=== PATIENT | female | born 1990 | race Caucasian/White ===

== ENCOUNTER 2023-01-29 17:52 | Emergency (ER) | payer OTHER, SELFPAY ==
[2023-01-29 18:28] VITALS: BP 117/70; PULSE 98; RESP 16; TEMP 37.2; O2SAT 99
[2023-01-29 18:33] VITALS: BP 117/70; PULSE 98; RESP 16; TEMP 37.2; O2SAT 99
--- NOTE | 2023-01-29 18:57 | ED.SKABFB ---
HPI - Skin/Abscess/Foreign Bdy General Chief complaint: Skin/Abscess/Foreign Body Stated complaint: rash on body Source: patient Mode of arrival: ambulatory Limitations: no limitations History of Present Illness HPI narrative: 33-year-old female presenting for complaint of rash to bilateral forearms and left neck worsening over the past 10 days. 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 States the rash is extremely itchy and she has caused the area to the left neck to become excoriated and draining. She is concerned for infection. She has taken nothing for symptoms. Denies lip, tongue, or throat swelling, shortness of breath or wheezing. Denies changes to soap, detergent, lotion, or any other exposures. No one else in the house or any contacts with similar symptoms. Related Data Home Medications Medication Instructions Recorded Confirmed Mirena 01/29/23 aripiprazole 15 mg tablet mg 01/29/23 buspirone 7.5 mg tablet mg 01/29/23 quetiapine 50 mg tablet mg 01/29/23 Allergies Allergy/AdvReac Type Severity Reaction Status Date / Time No Known Allergies Allergy Unverified 01/29/23 18:01 Review of Systems Review of Systems: CONSTITUTIONAL: Denies body aches, fever, chills, or sweats. EYES: Denies visual changes, redness, or discharge. ENT: Denies rhinorrhea, congestion CARDIOVASCULAR: Denies chest pain, palpitations, or edema. RESPIRATORY: Denies cough or dyspnea. GASTROINTESTINAL: Denies abdominal pain, nausea, vomiting, or diarrhea. SKIN: reports rash MUSCULOSKELETAL: Denies back pain, joint pain, or myalgia. NEUROLOGIC: Denies headache, numbness, tingling, or weakness. [facility] Past Medical History Medical History (Updated 01/29/23 @ 19:06 by Angelita Maya APRN) No pertinent past medical history Comments At time of signature, I have reviewed and agree with nursing past medical, surgical, social and family history unless otherwise noted. Please see nursing chart for further information. There is no relevant family history pertinent to the presenting complaint Exam Narrative: GENERAL: Well-appearing HEAD: Normocephalic, atraumatic. EYES: conjunctivae clear, and EOMI. ENT: Mucous membranes moist. Oropharynx without edema, erythema or lesions. NECK: Supple. No lymphadenopathy CHEST: Clear to auscultation. HEART: Regular rate and rhythm. SKIN: Warm, dry. left neck excoriated with surrounding erythema; bilateral forearms with linear erythematous vesicles c/w contact dermatitis. Left abdomen with one erythematous papule and surrounding erythema approx 2cm diameter, no active drainage, nontender. NEURO: Alert and oriented x3. Course Course Emergency Course: Patient is aware of diagnosis, understands and agrees to treatment plan. Anticipatory guidance given. Patient agrees to follow-up as directed and is aware of reasons to seek care at the emergency department. Portions of this record may have been created with voice recognition software Level of Care: Express Care Visit Vital Signs Vital signs: Vital Signs Temperature 98.9 F 01/29/23 18:28 Pulse Rate 98 01/29/23 18:28 Respiratory Rate 16 01/29/23 18:28 Blood Pressure 117/70 01/29/23 18:28 Pulse Oximetry 99 01/29/23 18:28 Oxygen Delivery Room Air 01/29/23 18:28 Temperature 98.9 F 01/29/23 18:33 Pulse Rate 98 01/29/23 18:33 Respiratory Rate 16 01/29/23 18:33 Blood Pressure 117/70 01/29/23 18:33 Pulse Oximetry 99 01/29/23 18:33 Oxygen Delivery Room Air 01/29/23 18:33 Reviewed MDM - Skin/Abscess/Foreign Bdy MDM Narrative Medical decision making narrative: Discussed physical exam findings and RXs. Advised supportive measures and signs/symptoms to go to the ER. Pt is appropriate for outpt treatment and f/u. Instructed patient to go to nearest ER immediately for any worsening symptoms including but not limited to: fever, spreading rash, pain
== END 2023-01-29 19:04 | disposition home or self-care (01) ==
PROVIDERS: Emergency Provider Nurse Practitioner Family
DX: L25.9 Unspecified contact dermatitis, unspecified cause (principal)
CPT/HCPCS: 99213; G0463

== ENCOUNTER 2023-05-01 13:35 | Emergency (ER) | payer OTHER, SELFPAY ==
[2023-05-01 13:45] VITALS: BP 113/73; PULSE 105; RESP 16; TEMP 36.5; O2SAT 100
--- NOTE | 2023-05-01 13:47 | ED.SKABFB ---
HPI - Skin/Abscess/Foreign Bdy General Chief complaint: Wound/Laceration Stated complaint: Wound Under Right Armpit Time Seen by Provider: 05/01/23 13:36 Source: patient Mode of arrival: ambulatory Limitations: no limitations History of Present Illness HPI narrative: Patient is a 33-year-old female who presents with abscess under right arm just distal of axilla. Patient states it has been present for 2 weeks and has just grown in size. Patient reports it is tender has been able tolerate pain until today. Patient has been taking Tylenol and ibuprofen. Denies any drainage from wound. Related Data Home Medications Medication Instructions Recorded Confirmed Mirena 01/29/23 aripiprazole 15 mg tablet mg 01/29/23 quetiapine 50 mg tablet mg 01/29/23 Allergies Allergy/AdvReac Type Severity Reaction Status Date / Time No Known Allergies Allergy Verified 05/01/23 13:48 Review of Systems Review of Systems: All systems reviewed & are unremarkable except as noted in HPI and below Constitutional: Constitutional: Denies body ache(s), Denies chills, Denies fatigue, Denies fever(s), Denies headache(s), Denies malaise and Denies weakness Eyes: Eyes: Denies blurry vision, Denies irritation and Denies loss of vision ENT: Denies otalgia, Denies headache(s), Denies nasal discharge, Denies sinus pain and Denies sore throat Cardiovascular: Cardiovascular: Denies chest pain, Denies irregular heart rhythm and Denies dyspnea Respiratory: Respiratory: Denies dyspnea Gastrointestinal: Gastrointestinal: Denies abdominal pain, Denies melena, Denies hematochezia, Denies diarrhea, Denies nausea and Denies vomiting Musculoskeletal: Musculoskeletal: Denies back pain, Denies myalgias and Denies arthralgias Integumentary/Breasts: Skin/Breast: Reports furuncle, Denies pruritus, Reports erythema and Denies rash Neurologic: Denies headache(s), Denies loss of vision and Denies weakness Psychiatric: Psychiatric: Reports no additional psychiatric complaints Endocrine: Endocrine: Denies fatigue PMFSH Past Medical History Medical History No pertinent past medical history Comments At time of signature, agree with nursing past medical, surgical, social and family history. There is no relevant family history pertinent to the presenting complaint. Exam Const: General: cooperative, healthy appearing, comfortable, no acute distress and well nourished Nutritional Appearance: well nourished Orientation/consciousness: patient oriented x3 Limitations: no limitations HENMT: Head: normal to inspection, normocephalic and atraumatic Ears: hearing grossly normal bilaterally and external ears normal Face/Nose/Sinus: Normal external nose present, normal facial exam and face symmetric Face and sinus: normal facial exam and face symmetric Mouth: Yes lip normal Eyes: General: appearance normal, both eyes and all related structures Alignment and Position: alignment normal and position normal Periorbital: periorbital findings normal Eyelids: eyelids normal Pupils: Equal, round and reactive pupils present EOM: EOMs intact bilaterally Neck: Neck: normal visual inspection, full ROM and supple Chest: Chest palpation & inspection: normal inspection of the chest Chest/axillae images: 1. 3x3 cm abscess with fluctuance and underlying induration. Skin on abscess and surrounding abscess 4x4 cm erythemic with no streaking Resp: Effort & Inspection: normal respiratory effort and able to speak in complete sentences Auscultation: clear to auscultation bilaterally Cardio: Rate: regular rate Rhythm: regular rhythm Heart sounds: S1 normal heart sound present and S2 normal heart sound present GI: Inspection: normal to inspection Skin: General skin exam: normal color and no rashes or lesions noted Neuro: General: patient oriented x3 and moves all extremities Cranial nerves: Yes Equal, round and re
== END 2023-05-01 14:10 | disposition home or self-care (01) ==
PROVIDERS: Emergency Provider Nurse Practitioner Family
DX: L02.411 Cutaneous abscess of right axilla (principal)
CPT/HCPCS: 10060; 87070; 87075; 87205; 99213; G0463

== ENCOUNTER 2023-06-25 16:23 | Emergency (ER) | payer OTHER, SELFPAY ==
--- NOTE | 2023-06-25 16:25 | ED.URI ---
HPI - URI/Sore Throat General Chief Complaint: Upper Respiratory Infection Stated Complaint: Sinus Time Seen by Provider: 06/25/23 16:25 Source: patient Mode of arrival: ambulatory Limitations: no limitations History of Present Illness HPI Narrative: Patient is a 33-year-old female who presents with coughing congestion for 2 days. Patient states prior to that starting she had sore throat for 1 day. Patient also reports headaches. Denies any fever, chills, nausea, vomiting, diarrhea. Has been taking Sudafed with mild relief. Reports exposure to flu. Related Data Home Medications Medication Instructions Recorded Confirmed Mirena 1 device intrauterine ONCE 01/29/23 06/25/23 buspirone 15 mg tablet 15 mg PO DAILY 06/25/23 06/25/23 buspirone 7.5 mg tablet 7.5 mg PO DAILY 06/25/23 06/25/23 fluoxetine 10 mg capsule 10 mg PO DAILY 06/25/23 06/25/23 fluoxetine 20 mg capsule 20 mg PO DAILY 06/25/23 06/25/23 Allergies Allergy/AdvReac Type Severity Reaction Status Date / Time No Known Allergies Allergy Verified 06/25/23 16:30 Review of Systems Review of Systems: All systems reviewed & are unremarkable except as noted in HPI and below Constitutional: Constitutional: Denies body ache(s), Denies chills, Denies fatigue, Denies fever(s), Reports headache(s), Denies malaise and Denies weakness Eyes: Eyes: Denies blurry vision, Denies itchy eyes and Denies loss of vision ENT: Denies otalgia, Denies headache(s), Reports nasal congestion, Denies sinus pain and Reports sore throat Cardiovascular: Cardiovascular: Denies chest pain, Denies irregular heart rhythm and Denies dyspnea Respiratory: Respiratory: Reports cough and Denies dyspnea Gastrointestinal: Gastrointestinal: Denies abdominal pain, Denies diarrhea, Denies nausea and Denies vomiting Musculoskeletal: Musculoskeletal: Denies back pain, Denies myalgias and Denies arthralgias Integumentary/Breasts: Skin/Breast: Denies pruritus and Denies rash Neurologic: Reports headache(s), Denies loss of vision and Denies weakness Psychiatric: Psychiatric: Reports no additional psychiatric complaints Endocrine: Endocrine: Denies fatigue Allergic/Immunologic: Allergic/Immunologic: Denies itchy eyes PMFSH Past Medical History Medical History No pertinent past medical history Comments At time of signature, agree with nursing past medical, surgical, social and family history. There is no relevant family history pertinent to the presenting complaint. Exam Const: General: cooperative, healthy appearing, comfortable, no acute distress and well nourished Nutritional Appearance: well nourished Orientation/consciousness: patient oriented x3 Limitations: no limitations HENMT: Head: normal to inspection, normocephalic and atraumatic Ears: hearing grossly normal bilaterally, external ears normal, TM's normal bilaterally, EAC's normal and no periauricular adenopathy Face/Nose/Sinus: Normal external nose present, Abnormal mucous membranes and turbinates present erythematous bilateral and diffuse, normal facial exam, sinuses nontender and face symmetric Face and sinus: normal facial exam, sinuses nontender and face symmetric Mouth: Yes Normal oral and palatal mucosa present, Yes lip normal, Yes tongue normal, Yes Normal salivary glands and ducts present, Yes oropharynx normal and Yes moist mucous membranes Teeth and gingiva: dentition normal Throat: posterior oropharynx normal, tonsils normal and uvula midline Eyes: General: appearance normal, both eyes and all related structures Alignment and Position: alignment normal and position normal Periorbital: periorbital findings normal Eyelids: eyelids normal Pupils: Equal, round and reactive pupils present Neck: Neck: normal visual inspection, full ROM, no lymphadenopathy and supple Chest: Chest palpation & inspection: normal inspection of the chest and normal palpation of entire ches
[2023-06-25 16:52] VITALS: BP 119/66; PULSE 106; RESP 18; TEMP 37.1; O2SAT 98
== END 2023-06-25 17:11 | disposition home or self-care (01) ==
PROVIDERS: Emergency Provider Nurse Practitioner Family
DX: J10.1 Influenza due to other identified influenza virus with other respiratory manifestations (principal); Z20.822 Contact with and (suspected) exposure to COVID-19
CPT/HCPCS: 87426; 87804; 99213; G0463

== ENCOUNTER 2023-09-16 10:46 | Emergency (ER) | payer OTHER, SELFPAY ==
--- NOTE | 2023-09-16 10:48 | ED.URI ---
HPI - URI/Sore Throat General Chief Complaint: Upper Respiratory Infection Stated Complaint: throat hurts Time Seen by Provider: 09/16/23 10:48 Source: patient Mode of arrival: ambulatory Limitations: no limitations History of Present Illness HPI Narrative: Evelin is a 33-year-old female patient presenting to the clinic today with complaints of a sore throat that started last night. She reports pain is only to the right side of her throat. It is having pain with swallowing. Denies any fever or chills but has had some nasal congestion that is just starting over the last 12 hours. MD elicited complaint: sore throat and nasal congestion Related Data Home Medications Medication Instructions Recorded Confirmed Mirena 1 device intrauterine ONCE 01/29/23 09/16/23 buspirone 15 mg tablet 15 mg PO DAILY 06/25/23 09/16/23 buspirone 7.5 mg tablet 7.5 mg PO DAILY 06/25/23 09/16/23 fluoxetine 10 mg capsule 10 mg PO DAILY 06/25/23 09/16/23 fluoxetine 20 mg capsule 20 mg PO DAILY 06/25/23 09/16/23 Allergies Allergy/AdvReac Type Severity Reaction Status Date / Time No Known Allergies Allergy Verified 09/16/23 10:48 Review of Systems Review of Systems: Pertinent positives per HPI. Patient denies any fever, chills, rash, headache, visual changes, dizziness, cough, shortness of breath, chest pain, palpitations, nausea, vomiting, diarrhea, constipation, abdominal pain, or any urinary issues. PMFSH Past Medical History Medical History No pertinent past medical history Comments At the time of my signature, I reviewed and agree with the nursing past medical, surgical, social, and family history. There is no relevant family history pertinent to the patient complaint. Exam Narrative: General: Well-developed, well nourished, in no apparent distress Head: Normocephalic, atraumatic Eyes: Pupils equally round and reactive to light bilaterally, EOM intact, sclera and conjunctive clear, no discharge, lids normal Ears: TMs intact and clear, ear canals clear, no drainage, grossly hearing normal. Nose: Nares patent, clear discharge, no inflammation, no sinus tenderness. Mouth: Oral pharynx red with mild enlargement of the right tonsil with exudate without lesions or masses, good dentition, MMM. Neck: Supple, trachea midline, no enlargement of anterior or posterior cervical nodes, no thyroid masses or goiter palpable. Cardio: Regular rate and rhythm, s1 and s2 normal, no murmur appreciated. Resp: Clear to auscultation bilaterally, no rhonchi, rales, wheezing or rubs Course Course Emergency Course: Portions of this record may have been created with voice recognition software. Level of Care: Express Care Visit Vital Signs Vital signs: Vital signs reviewed MDM - URI/Sore Throat MDM Narrative Medical decision making narrative: At the time of visit patient is resting comfortably on the exam table. Patient appears to be nontoxic. Labs: Strep test was performed and was positive. Plan: I suspect patient has strep pharyngitis. Prescription for amoxicillin was sent to the pharmacy. Supportive measures were discussed with the patient and they voiced understanding discharge instructions and agrees to treatment plan. Return precautions reviewed Differential Diagnosis Differential diagnosis: Likely upper respiratory infection, otitis media, sinusitis, viral infection, bronchitis, influenza, pharyngitis and other (COVID) Discharge Plan Discharge Clinical Impression: Acute streptococcal pharyngitis Patient Disposition: Home, Self-Care Condition: Stable Instructions: Antibiotic Form, Strep Throat (ED) Additional Instructions: Strep test was positive in the clinic today. Change your toothbrush in 24 hours after initiation of the antibiotics. Take prescription medications only as prescribed-amoxicillin Increase fluids and stay well hydrated Tylenol/mot
[2023-09-16 10:54] VITALS: BP 112/61; PULSE 91; RESP 16; TEMP 37; O2SAT 99
== END 2023-09-16 11:07 | disposition home or self-care (01) ==
PROVIDERS: Emergency Provider Nurse Practitioner Family
DX: J02.0 Streptococcal pharyngitis (principal)
CPT/HCPCS: 87880; 99213; G0463

== ENCOUNTER 2023-09-25 13:21 | Emergency (ER) | payer OTHER, SELFPAY ==
[2023-09-25 13:38] VITALS: BP 105/67; PULSE 78; RESP 16; TEMP 37.2; O2SAT 100
--- NOTE | 2023-09-25 14:09 | ED.SKABFB ---
HPI - Skin/Abscess/Foreign Bdy General Chief complaint: Skin/Abscess/Foreign Body Stated complaint: rash on body Time Seen by Provider: 09/25/23 14:09 Source: patient Mode of arrival: ambulatory Limitations: no limitations History of Present Illness HPI narrative: 33-year-old female presents with complaint of itchy rash to abdomen starting today. Patient is on her last day of amoxicillin for strep throat. Is concerned that she has scarlet fever. Has taken amoxicillin in the past with no history of rash. All systems reviewed and negative except as noted above. Related Data Home Medications Medication Instructions Recorded Confirmed Mirena 1 device intrauterine ONCE 01/29/23 09/16/23 buspirone 15 mg tablet 15 mg PO DAILY 06/25/23 09/16/23 fluoxetine 20 mg capsule 20 mg PO DAILY 06/25/23 09/16/23 quetiapine 50 mg tablet 50 mg PO HS PRN Sleep 09/25/23 09/25/23 Allergies Allergy/AdvReac Type Severity Reaction Status Date / Time No Known Allergies Allergy Verified 09/25/23 14:10 Review of Systems Review of Systems: CONSTITUTIONAL: Denies fever, chills, or sweats. EYES: Denies visual changes, redness, or discharge. ENT: Denies rhinorrhea, congestion, sore throat, or otalgia. CARDIOVASCULAR: Denies chest pain, palpitations, or edema. RESPIRATORY: Denies cough or dyspnea. GASTROINTESTINAL: Denies abdominal pain, nausea, vomiting, or diarrhea. GENITOURINARY: Denies dysuria or hematuria. SKIN: Reports itchy rash to abdomen. MUSCULOSKELETAL: Denies back pain, joint pain, or myalgia. NEUROLOGIC: Denies headache, numbness, or weakness. PSYCHIATRIC: Denies anxiety or depression. All other systems reviewed are negative, except as documented in HPI. [facility] Past Medical History Medical History No pertinent past medical history Comments At time of signature, agree with nursing past medical, surgical, social and family history. There is no relevant family history pertinent to the presenting complaint. Exam Narrative: GENERAL: This is a well-nourished, well-developed patient, in no apparent distress. HEAD: normocephalic, atraumatic. EYES: PERRL. Sclera clear/white. Vision is grossly intact. EARS: External ears normal NOSE: External nose normal NECK: Neck supple, non-tender without lymphadenopathy, masses or thyromegaly. CARDIOVASCULAR: Regular rate and rhythm without murmurs, gallops, or rubs. RESPIRATORY: Clear to auscultation. Breath sounds equal bilaterally. No wheezes, rales, or rhonchi. SKIN: warm, Dry, intact with no suspicious, good texture and turgor. Erythematous fine papular rash to anterior aspect abdomen. NEURO: awake, alert, and oriented to person, place and time. There were no obvious focal neurologic abnormalities. EXTREMITIES: No joint tenderness, effusion, or edema noted. Course Course Level of Care: Express Care Visit Vital Signs Vital signs: Vital Signs Temperature 37.2 C 09/25/23 13:38 Pulse Rate 78 09/25/23 13:38 Respiratory Rate 16 09/25/23 13:38 Blood Pressure 105/67 09/25/23 13:38 Pulse Oximetry 100 09/25/23 13:38 Oxygen Delivery Room Air 09/25/23 13:38 Temperature 37.2 C 09/25/23 13:38 Pulse Rate 78 09/25/23 13:38 Respiratory Rate 16 09/25/23 13:38 Blood Pressure 105/67 09/25/23 13:38 Pulse Oximetry 100 09/25/23 13:38 Oxygen Delivery Room Air 09/25/23 13:38 Reviewed MDM - Skin/Abscess/Foreign Bdy MDM Narrative Medical decision making narrative: will treat patient for allergic reaction with Claritin, prednisone and Pepcid. Patient is aware of diagnosis, understands and agrees to treatment plan. Anticipatory guidance given. Patient agrees to follow-up as directed and is aware of reasons to seek care at the emergency department. Portions of this record may have been created with voice recognition software Discharge Plan Discharge Clinical Impression:
== END 2023-09-25 14:20 | disposition home or self-care (01) ==
PROVIDERS: Emergency Provider Nurse Practitioner Family
DX: L27.0 Generalized skin eruption due to drugs and medicaments taken internally (principal); T36.0X5A Adverse effect of penicillins, initial encounter
CPT/HCPCS: 99213; G0463

== ENCOUNTER 2023-11-23 12:33 | Emergency (ER) | payer SELFPAY ==
--- NOTE | ~2023-11-23 | CT_ITS ---
EXAMINATION: CT thoracic lumbar wo con DATE: 11/23/2023 14:57 INDICATION: Mid back pain after heavy lifting TECHNIQUE: Computed tomography (CT) of the thoracic and lumbar spine was performed without intravenou s contrast. Automated exposure control and iterative reconstruction technique were employed. The dose -length product was 695.48 mGy-cm. COMPARISON: None FINDINGS: Thoracic spine: Chronic appearing mild likely physiologic anterior wedging at T11. Remaining thoracic vertebral body heights are normal. There are few small Schmorl's nodes in the lower thoracic spine. No fracture. Mil d disc height loss with mild degenerative endplate changes at T7 T8-T10 and T11. There is multilevel mild facet osteoarthritis throughout the thoracic spine. The dysgenetic. Extend beyond the endplate m argins. No central canal or neural foraminal stenosis. Paravertebral soft tissues are unremarkable. V isualized portion of the posterior medial lungs are clear. No pleural effusion. Lumbar spine: Alignment is normal. Vertebral body heights are normal. Small Schmorl's node along the inferior endpl ate of L4. Disc heights are normal. Mild disc bulges at L4-L5 and L5-S1 with negligible central canal stenosis. Minimal to mild lumbar facet osteoarthritis. Minimal neural foraminal stenosis bilaterally at L4-L5 and L5-S1. T-shaped IUD which appears oriented with the central stem directed towards the r ight cornua. 1.8 cm low-attenuation likely follicle in the left ovary. Paravertebral soft tissues are otherwise unremarkable. IMPRESSION: 1. Mild thoracic and minimal lumbar spondylosis. No acute osseous abnormality. 2. IUD with central stem directed towards the right cornua. Reviewed, dictated and finalized at location A.
[2023-11-23 12:42] VITALS: BP 97/70; PULSE 82; RESP 18; TEMP 36.4; O2SAT 100
--- NOTE | 2023-11-23 14:44 | ED.BACK ---
HPI - Back Pain/Injury General Chief Complaint: Back Pain/Injury Stated Complaint: back pain injury lifting 50lbs bag Time Seen by Provider: 11/23/23 13:59 Source: patient Mode of arrival: ambulatory Limitations: no limitations History of Present Illness HPI Narrative: Patient is a 33-year-old female who presents the ED with report of mid to lower back pain. Patient reports she was heavy objects at work, up to 50 lb at this time. She states she felt a twinge in her back after lifting yesterday. She then slept on an air mattress overnight and reported having increased mid to lower back pain today. She took ibuprofen 3 hours ago with minimal relief. Denies radiation of pain into her legs or abdomen. Denies numbness, saddle anesthesia, bowel or bladder incontinence. No dysuria/hematuria. Related Data Home Medications Medication Instructions Recorded Confirmed Mirena 1 device intrauterine ONCE 01/29/23 09/16/23 buspirone 15 mg tablet 15 mg PO DAILY 06/25/23 09/16/23 fluoxetine 20 mg capsule 20 mg PO DAILY 06/25/23 09/16/23 quetiapine 50 mg tablet 50 mg PO HS PRN Sleep 09/25/23 09/25/23 Allergies Allergy/AdvReac Type Severity Reaction Status Date / Time No Known Allergies Allergy Verified 09/25/23 14:10 Review of Systems Review of Systems: All systems reviewed & are unremarkable except as noted in HPI. All systems reviewed & are unremarkable except as noted in HPI and below PMFSH Past Medical History Medical History No pertinent past medical history Exam Narrative: GENERAL: Well appearing, well-nourished, non-toxic, in no acute distress. HEAD: Normocephalic, atraumatic. RESPIRATORY: Airway patent, respirations nonlabored. Clear to auscultation bilaterally, no rales, rhonchi, wheezing. CARDIOVASCULAR: Regular rate and rhythm ABDOMINAL: Soft, nontender, nondistended. Normoactive BS. MUSCULOSKELETAL: Moves all extremities. No gross deformities. Mild TTP in R sided paraspinal musculature throughout R lower thoracic and upper lumbar region. No significant midline spinal tenderness. No palpable bony deformities or step offs. Sensation is intact. SKIN: Warm, dry, normal color. NEURO: A&O X3. Speech clear. Cranial nerves II-XII grossly intact. Steady gait. No ataxic movements. PSYCHIATRIC: Appropriate mood and affect. Normal interaction. Course Vital Signs Vital signs: Vital Signs Temperature 97.6 F 11/23/23 12:42 Pulse Rate 82 11/23/23 12:42 Respiratory Rate 18 11/23/23 12:42 Blood Pressure 97/70 L 11/23/23 12:42 Pulse Oximetry 100 11/23/23 12:42 Oxygen Delivery Room Air 11/23/23 12:42 Temperature 98.9 F 11/23/23 16:23 Pulse Rate 72 11/23/23 16:23 Respiratory Rate 18 11/23/23 16:23 Blood Pressure 110/68 11/23/23 16:23 Pulse Oximetry 100 11/23/23 16:23 Oxygen Delivery Room Air 11/23/23 12:42 MDM - Back Pain/Injury MDM Narrative Medical decision making narrative: Patient?s pain is positional and localized to paraspinal muscles without signs of cord compression or cauda equina. Normal neurologic exams. No red flag symptoms. No fever noted and no significant risk factors for osteomyelitis or spinal epidural abscess. No symptoms or signs to suggest pain is referred from abdominal or source. CT thoracic and lumbar spine showing spondylosis changes, no acute abnormality. IUD present. Patient given Solu-Medrol, Tylenol, Flexeril in the ED. She is feeling better with supportive therapy. Discussed imaging findings. Discussed likelihood of lumbar/thoracic strain. Patient ambulates with a steady gait and is felt to be a reasonable candidate for continued outpatient management. Discussed continue management of pain, will prescribe Flexeril & lidocaine patches for home. Patient given return precautions. She agrees with plan. Discharged in stable condition. Medical Records Attestation: I reviewed the
[2023-11-23] MEDS: ACETAMINOPHEN 500 MG TABLET 1000 MG PO (14:58)
[2023-11-23] MEDS: CYCLOBENZAPRINE HCL 5 MG TABLET PO (14:59)
[2023-11-23] MEDS: methylPREDNISolone SOD SUCC 125 MG VIAL IM (14:59)
[2023-11-23 16:23] VITALS: BP 110/68; PULSE 72; RESP 18; TEMP 37.2; O2SAT 100
== END 2023-11-23 16:25 | disposition home or self-care (01) ==
PROVIDERS: Emergency Provider Physician Assistant
DX: S39.012A Strain of muscle, fascia and tendon of lower back, initial encounter (principal); S29.019A Strain of muscle and tendon of unspecified wall of thorax, initial encounter; X50.0XXA Overexertion from strenuous movement or load, initial encounter
CPT/HCPCS: 72128; 72131; 96372; 99284; A9270; J2919